=== PATIENT | female | born 1950 | race African-American/Black ===

== ENCOUNTER 2017-11-20 13:50 | Emergency (ER) | payer OTHER ==
[~2017-11-20] VITALS: Ht 157.5 cm; Wt 78.0 kg
[2017-11-20 14:51] LABS: Basophils # (auto) 0 uL; Basophils % (auto) 0.7 % (0.0-2.0); Eosinophils # (auto) 0.5 uL; Eosinophils % (auto) 7.6 % (0.0-7.0); Hematocrit 35.5 % (36.0-46.0); Hemoglobin 11.5 g/dL (12.2-16.2); Lymphocytes # (auto) 2.1 uL; Lymphocytes % (auto) 31.7 % (10.0-50.0); Mean Corpuscular Hemoglobin 27.3 pg (28.0-32.0); Mean Corpuscular Hgb Conc. 32.4 g/dL (32.0-36.0); Mean Corpuscular Volume 84.3 fL (80.0-100.0); Monocytes # (auto) 0.5 uL; Monocytes % (auto) 7.5 % (0.0-12.0); Neutrophils # (auto) 3.5 uL; Neutrophils % (auto) 52.5 % (37.0-80.0); Nucleated Red Blood Cells % 0.1 %; Platelet Count (auto) 234 10^3/uL (140-450); Red Blood Cells 4.21 10^6/uL (4.0-5.20); Red Cell Distribution Width 14.9 % (11.8-14.3); White Blood Cell 6.7 10^3/uL (4.4-10.8)
[2017-11-20 15:07] LABS: Albumin 3.5 g/dL (3.4-5.0); BUN/Creatinine Ratio 28.4; Bilirubin, Total 0.2 mg/dL (0.2-1.0); Calcium 8.6 mg/dL (8.5-10.1); Potassium 3.8 mmol/L (3.5-5.1); Total Protein 6.9 g/dL (6.4-8.2)
[2017-11-20] MEDS ORDERED: ALBUTEROL SULF 2.5 MG/0.5ML(0.5%) NEB SOLN NEB ONE (16:00)
[2017-11-20] MEDS ORDERED: methylPREDNISolone SOD SUCC 125 MG/2 ML VL IM ONE (16:00)
[2017-11-20] MEDS ORDERED: IPRATROPIUM BROM 0.5 MG/2.5ML INH SOL NEB ONE (16:00)
[2017-11-20 18:01] VITALS: BP 176/109
== END 2017-11-20 18:11 | disposition home or self-care (01) ==
LOC: ER 13:50
DX: J02.9 Acute pharyngitis, unspecified (principal); J45.909 Unspecified asthma, uncomplicated
CPT/HCPCS: 36415; 71046; 80053; 85025; 94640; 96372; 99285; J2930

== ENCOUNTER 2017-11-21 19:00 | Emergency (ER) | payer OTHER ==
[~2017-11-21] VITALS: Ht 177.8 cm; Wt 78.0 kg
[2017-11-21] MEDS ORDERED: IPRATROPIUM BROM 0.5 MG/2.5ML INH SOL NEB ONE (19:30)
[2017-11-21] MEDS ORDERED: ALBUTEROL SULF 2.5 MG/0.5ML(0.5%) NEB SOLN NEB ONE (19:30)
[2017-11-21 19:39] VITALS: BP 181/98
[2017-11-21] MEDS ORDERED: ALBUTEROL SULF 2.5 MG/0.5ML(0.5%) NEB SOLN ONE (20:02)
[2017-11-21] MEDS ORDERED: IPRATROPIUM BROM 0.5 MG/2.5ML INH SOL ONE (20:02)
[2017-11-21 20:27] LABS: Albumin 3.5 g/dL (3.4-5.0); BUN/Creatinine Ratio 26.9; Bilirubin, Total 0.3 mg/dL (0.2-1.0); Calcium 8.3 mg/dL (8.5-10.1); Potassium 3.9 mmol/L (3.5-5.1); Total Protein 7.1 g/dL (6.4-8.2)
[2017-11-21 20:31] LABS: Basophils # (auto) 0 uL; Basophils % (auto) 0.2 % (0.0-2.0); Eosinophils # (auto) 0 uL; Eosinophils % (auto) 0.2 % (0.0-7.0); Hematocrit 34.6 % (36.0-46.0); Hemoglobin 11.3 g/dL (12.2-16.2); Lymphocytes # (auto) 0.6 uL; Lymphocytes % (auto) 5.7 % (10.0-50.0); Mean Corpuscular Hemoglobin 27.4 pg (28.0-32.0); Mean Corpuscular Hgb Conc. 32.6 g/dL (32.0-36.0); Mean Corpuscular Volume 84.2 fL (80.0-100.0); Monocytes # (auto) 0.4 uL; Monocytes % (auto) 3.8 % (0.0-12.0); Neutrophils % (auto) 90.1 % (37.0-80.0); Nucleated Red Blood Cells % 0.3 %; Platelet Count (auto) 225 10^3/uL (140-450); Red Blood Cells 4.11 10^6/uL (4.0-5.20); Red Cell Distribution Width 14.8 % (11.8-14.3)
== END 2017-11-22 03:51 | disposition left against medical advice (07) ==
LOC: ER 19:00
DX: R06.02 Shortness of breath (principal); Z53.21 Procedure and treatment not carried out due to patient leaving prior to being seen by health care provider
CPT/HCPCS: 36415; 71045; 80053; 85025; 93005; 94640